=== PATIENT | female | born 1955 | race Caucasian/White ===

== ENCOUNTER 2016-09-27 09:26 | Inpatient (IN) | payer OTHER ==
[~2016-09-27] VITALS: Ht 154.9 cm; Wt 68.0 kg
[2016-09-27] VITALS (7 sets, daily range): BP systolic 122–154; BP diastolic 76–87; PULSE 70–91; TEMP 36.5–36.9; O2SAT 95–97; Ht 154.9 cm; Wt 68.0 kg
[~2016-09-27 09:26] MED LIST: PRED-301 PO
[2016-09-27] MEDS ORDERED: SODIUM CHLORIDE 0.9% 1000ML 1,000 ML IV STA (09:38)
[2016-09-27] MEDS ORDERED: SODIUM CHLORIDE 0.9% 250ML 250 ML IV STA (09:38)
--- NOTE | 2016-09-27 09:53 | EMERGENCY ROOM VISIT NOTE ---
History Report prepared by Edgar: Dee Gutierrez Under the Supervision of: Dr. Apurva Stallings M.D. First contact with patient: 09:38 Chief Complaint: STROKE SYMPTOMS Stated Complaint: WEAKNESS IN LEFT SIDE Nursing Triage Summary: pt c/o left sided weakness since yesterday around 1700. History of Present Illness The patient is a 60 year old female who presents to the Emergency Room with complaints of persistent left sided weakness that began yesterday around 1700. The patient states that yesterday afternoon she noticed left leg weakness and left arm weakness. She additionally states that her left arm feels heavy. The patient denies any dysphasia, aphasia, or visual changes. She states that she noticed she was tripping easily yesterday. The patient states that she did fall head first into the door yesterday around 1800. She denies any numbness or decreased sensation. The patient denies any active medical problems. She denies any smoking history. The patient denies taking any hormones. Source of History: patient Onset: yesterday around 1700 Position: other (left sided) Quality: other (weakness) Associated Symptoms: No numbness Review of Systems See HPI for pertinent positives & negatives. A total of 10 systems reviewed and were otherwise negative. Past Medical & Surgical Medical Problems: (1) Acute CVA (cerebrovascular accident) (2) No active medical problems (3) Stroke Family History Patient reports no known family medical history. Social History Smoking Status: Never Smoker Marital Status: Housing Status: lives with significant other Current/Historical Medications Scheduled Prednisone (Prednisone), 5 MG PO UD Allergies Coded Allergies: Atorvastatin (Verified Adverse Reaction, Intermediate, MUSCLE ACHES/PAIN, 09/27/16) Physical Exam Vital Signs Date Time Temp Pulse Resp B/P (MAP) Pulse Ox O2 Delivery O2 Flow Rate FiO2 09/27/16 10:51 72 18 142/70 95 Room Air 09/27/16 10:26 70 09/27/16 10:16 97 Room Air 09/27/16 09:36 36.8 69 18 159/90 97 Room Air Physical Exam Vital signs reviewed. General: Well-appearing female, in no significant distress. HEENT: No scleral icterus, PERRLA, neck supple. Atraumatic. Cardiovascular: Regular rate and rhythm, no extra sounds. Pulmonary: Clear to auscultation bilaterally, normal work of breathing. Abdomen: Soft, nontender, nondistended, positive bowel sounds. Musculoskeletal: Atraumatic, no peripheral edema. Neurologic: Patient awake alert and oriented x 3, subtle weakness in the left upper and lower extremity, but mild ataxia to the left finger to nose, no pronator drift, heel to portillo exam is intact. Cranial nerves 2 through 12 grossly intact. Skin: Warm, dry, no rash Medical Decision & Procedures ER Provider Diagnostic Interpretation: Radiology results as stated below per my review and radiologist interpretation: HEAD CT NONCONTRAST CT DOSE: 537.48 mGy.cm HISTORY: Stroke symptoms. TECHNIQUE: Multiaxial CT images of the head were performed without the use of intravenous contrast. Automated exposure control was utilized for this study. A dose lowering technique was utilized adhering to the principles of ALARA. Comparison: None. Findings: The paranasal sinuses and mastoid air cells are clear. The calvarium and skull base are intact. The ventricles are normal in size. White matter hypodensity is nonspecific but likely represent microvascular ischemic change. There is no mass, hematoma, midline shift, or acute infarct. Punctate old lacunar infarct seen within the right basal ganglia and right thalamus. Impression: No acute intracranial abnormality. Microvascular ischemic change and old right-sided lacunar infarcts. Electronically signed by: Shaji Ribeiro M.D. 09/27/2016 10:09 AM Dictated Date/Time: 09/27/2016 10:06 AM Laboratory Results Test 09/27/16 09:55 09/27/16 10:25 Erythrocyte Sedimentation Rate 9 mm/hr (0-21) Prothrombin Time 10.4 SECONDS (9.0-12.0) Prothromb Time International Ratio 1.0 (0.9-1.1) Activated Partial Thromboplast Time 24.3 SECONDS (21.0-31.0) Partial Thromboplastin Ratio 0.9 D-Dimer 510 ug/L FEU (0-500) Bedside Glucose 87 mg/dl (70-90) Estimated Average Glucose 111 mg/dl Hemoglobin A1c 5.5 % (4.5-5.6) Magnesium Level 2.1 mg/dl (1.8-2.4) Total Bilirubin 0.4 mg/dl (0.2-1) Direct Bilirubin < 0.1 mg/dl (0-0.2) Aspartate Amino Transf (AST/SGOT) 17 U/L (15-37) Alanine Aminotransferase (ALT/SGPT) 33 U/L (12-78) Alkaline Phosphatase 66 U/L (45-117) Total Creatine Kinase 78 U/L (26-192) Creatine Kinase MB 0.8 ng/ml (0.5-3.6) Creatine Kinase MB Ratio 1.0 (0-3.0) Troponin I < 0.015 ng/ml (0-0.045) Total Protein 7.1 gm/dl (6.4-8.2) Albumin 3.6 gm/dl (3.4-5.0) Hepatitis C Antibody Screen NEG (NEG) Urine Color YELLOW Urine Appearance CLEAR (CLEAR) Urine pH 6.5 (4.5-7.5) Urine Specific [place] 1.022 (1.000-1.030) Urine Protein NEG (NEG) Urine Glucose (UA) NEG (NEG) Urine Ketones NEG (NEG) Urine Occult Blood NEG (NEG) Urine Nitrite NEG (NEG) Urine Bilirubin NEG (NEG) Urine Urobilinogen NEG (NEG) Urine Leukocyte Esterase NEG (NEG) Laboratory results per my review. Medications Administered Medications (Trade) Dose Ordered Sig/Kelly Route Start Time Stop Time Status Last Admin Dose Admin Sodium Chloride 250 ml @ 999 mls/hr Q16M STAT IV 09/27/16 09:38 09/27/16 09:53 DC 09/27/16 10:48 999 MLS/HR Sodium Chloride 1,000 ml @ 125 mls/hr Q8H STAT IV 09/27/16 09:38 09/27/16 15:03 DC 09/27/16 10:53 125 MLS/HR ECG Indication: weakness Rate (beats per minute): 71 Rhythm: normal sinus Findings: no acute ischemic change, no ectopy ED Course 0938: Ordered Chloride 1000 ml @ 125 mls/hr IV, Sodium Chloride 250 ml @ 999 mls /hr IV. 0944: Past medical records reviewed. The patient was evaluated in room A9B. A complete history and physical examination was performed. 1138: I reevaluated the patient and she is resting comfortably. I discussed the exam findings with her and I discussed the treatment plan. She verbalized complete understanding and agreement. She will be evaluated for further treatment. 1141: I discussed the patients case with Hyacinth Galaviz. She will evaluate the patient for further treatment, but she requested that Neurology is consulted. 1145: I discussed the patients case with Dr. Snow, Neurology. She states that she will consult the patient. Medical Decision Differential diagnosis: Etiologies such as metabolic, infection, hypo/hyperglycemia, electrolyte abnormalities, cardiac sources, intracerebral event, toxicologic, neurologic, as well as others were entertained. This patient was evaluated and appeared to be in no significant distress. IV access was obtained and laboratory work was drawn. The patient was hydrated with normal saline solution. CT scan of the head was performed and reveals no acute abnl, there is evidence of old R lacunar infarcts. Patient's laboratory work is fairly unrevealing. Due to the patient's age and findings on head CT, I am concerned that she may have suffered an acute CVA that has not been identified. She will be evaluated by the hospitalist service for further management. Medication Reconcilliation Current Medication List: was personally reviewed by me Blood Pressure Screening Patient's blood pressure: Elevated blood pressure The patient was referred to the hospitalist. Consults Time Called: 1138 Consulting Physician: Hyacinth Galaviz Returned Call: 1141 I discussed the patients case with Hyacinth Galaviz. She will evaluate the patient for further treatment, but she requested that Neurology is consulted. Additional Consults: Time Called: 1143 Consulted Physician: Orlando Green Returned Call: 1149 Additional Comments: I discussed the patients case with Dr. Snow, Neurology. She states that she will consult the patient. Impression Primary Impression: CVA (cerebral vascular accident) Scribe Attestation The scribe's documentation has been prepared under my direction and personally reviewed by me in its entirety. I confirm that the note above accurately reflects all work, treatment, procedures, and medical decision making performed by me. Departure Information Dispostion Being Evaluated By Hospitalist Referrals Jhonny Jose MD (PCP) Stroke History Time Last Known Well 1700 yesterday Stroke t-PA Criteria Reviewed Does NOT meet criteria for t-PA Reason t-PA Not Given Contraindicated
--- NOTE | 2016-09-27 10:10 | DIAGNOSTIC IMAGING REPORT ---
HEAD CT NONCONTRAST CT DOSE: 537.48 mGy.cm HISTORY: Stroke symptoms. TECHNIQUE: Multiaxial CT images of the head were performed without the use of intravenous contrast. Automated exposure control was utilized for this study. A dose lowering technique was utilized adhering to the principles of ALARA. Comparison: None. Findings: The paranasal sinuses and mastoid air cells are clear. The calvarium and skull base are intact. The ventricles are normal in size. White matter hypodensity is nonspecific but likely represent microvascular ischemic change. There is no mass, hematoma, midline shift, or acute infarct. Punctate old lacunar infarct seen within the right basal ganglia and right thalamus. Impression: No acute intracranial abnormality. Microvascular ischemic change and old right-sided lacunar infarcts. Electronically signed by: Shaji Ribeiro M.D. 09/27/2016 10:09 AM Dictated Date/Time: 09/27/2016 10:06 AM
[2016-09-27 10:12] LABS: BASO % 0.2 %; BASO ABS # 0.01 K/uL (0-0.2); COMPLETE YES; EOS % 1.1 %; HEMATOCRIT 41.9 % (37-47); IG% 0.2 %; LYMPH % 14.1 %; MEAN CELL VOLUME 84.5 fL (80-100); MEAN CORPUSCULAR HEMOGLOBIN 28.6 pg (25-34); MEAN CORPUSCULAR HGB CONC 33.9 g/dl (32-36); MONO % 9.2 %; NEUT % 75.2 %; PLATELET COUNT 233 K/uL (130-400); RED BLOOD COUNT 4.96 M/uL (4.2-5.4); WHITE BLOOD COUNT 5.67 K/uL (4.8-10.8)
[2016-09-27 10:20] LABS: PARTIAL THROMBOPLASTIN RATIO 0.9; PROTHROMBIN TIME (PATIENT) 10.4 SECONDS (9.0-12.0)
[2016-09-27 11:18] LABS: ALT/SGPT 33 U/L (12-78); AST/SGOT 17 U/L (15-37); BLOOD UREA NITROGEN 14 mg/dl (7-18); BUN/CREATININE RATIO 19.9 (10-20); CALCIUM 8.7 mg/dl (8.5-10.1); CARBON DIOXIDE 28 mmol/L (21-32); CHLORIDE 102 mmol/L (98-107); CREATININE 0.71 mg/dl (0.60-1.20); GLUCOSE 89 mg/dl (70-99); MAGNESIUM 2.1 mg/dl (1.8-2.4); POTASSIUM 3.4 mmol/L (3.5-5.1); SODIUM 139 mmol/L (136-145)
[2016-09-27 11:37] LABS: ALKALINE PHOSPHATASE 66 U/L (45-117)
[2016-09-27 12:00] LABS: URINE APPEARANCE CLEAR (CLEAR); URINE BILIRUBIN NEG (NEG); URINE COLOR YELLOW; URINE NITRITE NEG (NEG); URINE PH 6.5 (4.5-7.5); URINE SPECIFIC GRAVITY 1.022 (1.000-1.030); UROBILINOGEN NEG (NEG); ZZUR CULT IF INDIC CLEAN CATCH NO
[2016-09-27] MEDS ORDERED: ZOLPIDEM TARTRATE 5 MG TAB PO PRN (12:00)
[2016-09-27] MEDS ORDERED: POLYETHYLENE (MIRALAX) 17 GM PACK PO PRN (12:00)
[2016-09-27] MEDS ORDERED: ACETAMINOPHEN 325 MG TAB PO PRN (12:00)
[2016-09-27] MEDS ORDERED: IV FLUIDS COMPLETED PRN (12:00)
[2016-09-27] MEDS ORDERED: ONDANSETRON INJ 2 MG/ML 2 ML VIAL IV PRN (12:00)
[2016-09-27] MEDS ORDERED: MAGNESIUM HYDROXIDE SUSP 30 ML UDC PO PRN (12:00)
[2016-09-27] MEDS ORDERED: PHARMACIST DISCHARGE MED REC CONSULT PRN (12:00)
[2016-09-27] MEDS ORDERED: ALUMINUM/MAGNESIUM/SIMETH (MAALOX MAX) 30 ML UDC PO PRN (12:00)
[2016-09-27 12:01] LABS: MANUAL MICROSCOPIC REQUIRED? NO; REVIEW REQ? NO
--- NOTE | 2016-09-27 12:01 | History and Physical ---
History & Physical Date & Time of Service: Sep 27, 2016 at 12:01 Chief Complaint: Weakness In Left Side Primary Care Physician: Jhonny Jose MD History of Present Illness Source: patient This is a 60 yo apparently healthy Female -hx of hyperlipidemia ( not on any meds ) , interstitial lung disease chronic , presented with symptom of heaviness of left arm since last evening at 6 pm pt denies of any headache, no visual symptoms , no facial droop , no dysarthria , no gait or balance disturbance did not had any palpitation , no SOB her symptom persisted this AM , came to ER for evaluation CT head in ED was negative for acute CVA had chronic microvascular changes MRI of brain shows acute infract on rt thalamic area Family History Patient reports no known family medical history. Social History Smoking Status: Never Smoker Marital Status: Allergies Coded Allergies: No Known Allergies (Unverified , 09/27/16) Home Medications Scheduled Prednisone (Prednisone), 5 MG PO UD Review of Systems Constitutional: No fever, No chills, No sweats, No weight loss, No weakness, No fatigue, No problem reported Eyes: No worsening of vision, No eye pain, No redness, No discharge, No diplopia, No problem reported ENT: No hearing loss, No unusual epistaxis, No nasal symptoms, No sore throat, No tinnitus, No dental problems, No trouble swallowing, No problem reported Respiratory: No cough, No sputum, No wheezing, No shortness of breath, No dyspnea on exertion, No dyspnea at rest, No hemoptysis, No problem reported Cardiovascular: No chest pain, No orthopnea, No PND, No edema, No claudication , No palpitations, No problem reported Abdomen: No pain, No nausea, No vomiting, No diarrhea, No constipation, No GI bleeding, No problem reported Neurologic: + weakness (on left arm ) Physical Exam Vital Signs Date Time Temp Pulse Resp B/P (MAP) Pulse Ox O2 Delivery O2 Flow Rate FiO2 09/27/16 10:51 72 18 142/70 95 Room Air 09/27/16 10:26 70 09/27/16 10:16 97 Room Air 09/27/16 09:36 36.8 69 18 159/90 97 Room Air General Appearance: no apparent distress Head: normocephalic, atraumatic Eyes: PERRL, EOMI, sclerae normal Neck: no JVD, no carotid bruits Respiratory/Chest: chest non-tender, lungs clear, normal breath sounds, no respiratory distress Cardiovascular: regular rate, rhythm, no edema, no JVD Abdomen/GI: normal bowel sounds, non tender, soft Neurologic/Psych: heating element builder II-XII nml as tested, alert, normal mood/affect, oriented x 3, + motor weakness (4/5 on left arm ) Skin: normal color, warm/dry, no rash Lymphatic: no adenopathy Diagnostics Laboratory Results Results Past 24 Hours Test 09/27/16 09:49 09/27/16 09:55 09/27/16 10:25 09/27/16 11:46 Range/Units Creatine Kinase MB Ratio 1.0 0-3.0 White Blood Count 5.67 4.8-10.8 K/uL Red Blood Count 4.96 4.2-5.4 M/uL Hemoglobin 14.2 12.0-16.0 g/dL Hematocrit 41.9 37-47 % Mean Corpuscular Volume 84.5 80-100 fL Mean Corpuscular Hemoglobin 28.6 25-34 pg Mean Corpuscular Hemoglobin Concent 33.9 32-36 g/dl Platelet Count 233 130-400 K/uL Mean Platelet Volume 10.0 7.4-10.4 fL Neutrophils (%) (Auto) 75.2 % Lymphocytes (%) (Auto) 14.1 % Monocytes (%) (Auto) 9.2 % Eosinophils (%) (Auto) 1.1 % Basophils (%) (Auto) 0.2 % Neutrophils # (Auto) 4.27 1.4-6.5 K/uL Lymphocytes # (Auto) 0.80 1.2-3.4 K/uL Monocytes # (Auto) 0.52 0.11-0.59 K/uL Eosinophils # (Auto) 0.06 0-0.5 K/uL Basophils # (Auto) 0.01 0-0.2 K/uL RDW Standard Deviation 39.6 36.4-46.3 fL RDW Coefficient of Variation 12.9 11.5-14.5 % Immature Granulocyte % (Auto) 0.2 % Immature Granulocyte # (Auto) 0.01 0.00-0.02 K/uL Prothrombin Time 10.4 9.0-12.0 SECONDS Prothromb Time International Ratio 1.0 0.9-1.1 Activated Partial Thromboplast Time 24.3 21.0-31.0 SECONDS Partial Thromboplastin Ratio 0.9 Sodium Level 139 136-145 mmol/L Potassium Level 3.4 3.5-5.1 mmol/L Chloride Level 102 98-107 mmol/L Carbon Dioxide Level 28 21-32 mmol/L Anion Gap 9.0 3-11 mmol/L Blood Urea Nitrogen 14 7-18 mg/dl Creatinine 0.71 0.60-1.20 mg/dl Est Creatinine Clear Calc Drug Dose 77.1 ml/min Estimated GFR () 108.8 Estimated GFR (Non- 93.9 BUN/Creatinine Ratio 19.9 10-20 Bedside Glucose 87 70-90 mg/dl Random Glucose 89 70-99 mg/dl Calcium Level 8.7 8.5-10.1 mg/dl Magnesium Level 2.1 1.8-2.4 mg/dl Total Bilirubin 0.4 0.2-1 mg/dl Direct Bilirubin < 0.1 0-0.2 mg/dl Aspartate Amino Transf (AST/SGOT) 17 15-37 U/L Alanine Aminotransferase (ALT/SGPT) 33 12-78 U/L Alkaline Phosphatase 66 45-117 U/L Total Creatine Kinase 78 26-192 U/L Creatine Kinase MB 0.8 0.5-3.6 ng/ml Troponin I < 0.015 0-0.045 ng/ml Total Protein 7.1 6.4-8.2 gm/dl Albumin 3.6 3.4-5.0 gm/dl Diagnostic Radiology CT HEAD WITHOUT CONTRAST : Impression: No acute intracranial abnormality. Microvascular ischemic change and old right-sided lacunar infarcts. MRI BRAIN IMPRESSION: 1. An acute lacunar infarct within the right thalamus which measures 9 mm. 2. Greater than expected white matter T2 hyperintensity for age. This could represent advanced microvascular ischemic change. However, multiple sclerosis, Lyme disease, or a vasculitis could also have a similar appearance. MRA OF BRAIN : IMPRESSION: Mild narrowing within the supraclinoid segment of the right internal carotid carotid artery. Otherwise, no significant stenosis, occlusion, or aneurysm within the [place]. CAROTID DOPPLER : IMPRESSION: No hemodynamically significant stenosis seen within the carotid arteries. BILATERAL LOWER EXT DOPPLER : IMPRESSION: No evidence of deep venous thrombus within the bilateral lower extremities. EKG Normal sinus rhythm Normal ECG No previous ECGs available Impression Assessment and Plan ACUTE CVA : presented with left sided weakness since last evening symptom has markedly improved no dysarthria , no facial droop, MRI of brain shows acute rt sided thalamic CVA old lacunar infarction pt started on dual antiplatelets Aspirin and Plavix Carotid Doppler negative for stenosis started on high intensity statin therapy check fasting lipid panel in AM appreciate eval form neurology pt will be observed in tele for evidence of arrhythmia ECHO ordered to assess for cardiac thrombus mild elevation of D dimer lower ext Doppler negative for DVT PT/.OT eval in AM HX OF HYPERLIPIDEMIA : was not on any meds started on high intensity statin therapy check fasting lipid panel in AM CHRONIC INTERSTITIAL LUNG DISEASE : no complain of SOB /GALEAS , no hypoxia respiratory status stable FULL CODE DVT PROPHYLAXIS : low risk active at baseline SCD and teds pt is encouraged to ambulate DISPOSITION : expected to be discharged home when medically stable Level of Care Telemetry Resuscitation Status FULL RESUSCITATION VTE Prophylaxis VTE Risk Assessment Done? Y/N: Yes Risk Level: Moderate Given or contraindicated: T.E.D. Stockings, SCD's
[2016-09-27] MEDS ORDERED: ASPIRIN 325 MG ECTAB PO ONE (12:30)
[2016-09-27] MEDS ORDERED: CLOPIDOGREL BISULFATE 75 MG TAB PO ONE ×2 (12:45→15:30)
--- NOTE | 2016-09-27 13:19 | DIAGNOSTIC IMAGING REPORT ---
Brain MRA HISTORY: Stroke - Attention to [place] TECHNIQUE: 3-D [id number] MRA of the brain was performed without contrast. COMPARISON STUDY: Head CT 09/27/2016. FINDINGS: Focal irregularity within the right carotid siphon due to the calcified plaque. There is mild narrowing of the supraclinoid segment of the right internal carotid artery. Visualized intracranial left internal carotid artery, distal vertebral arteries, and basilar artery are widely patent. There is no significant stenosis, occlusion, or aneurysm seen within the bilateral ACAs, MCAs, or quick sketch artist. IMPRESSION: Mild narrowing within the supraclinoid segment of the right internal carotid carotid artery. Otherwise, no significant stenosis, occlusion, or aneurysm within the [place]. Electronically signed by: Shaji Ribeiro M.D. 09/27/2016 1:18 PM Dictated Date/Time: 09/27/2016 1:11 PM
--- NOTE | 2016-09-27 14:08 | NEUROLOGY CONSULTATION ---
DATE OF CONSULTATION: 09/27/2016 REASON FOR CONSULTATION: Possible stroke. HISTORY OF PRESENT ILLNESS: The patient is a 60-year-old right-handed female with a history of interstitial lung disease. She presented to the Emergency Room today with persistent left-sided weakness that began yesterday at approximately 4:00 p.m. The patient was driving home with a passenger going home in a car, and she noted her left arm to be weak as well as her left leg to be weak. She felt perhaps if she slept it would resolve, but it did not and therefore she came into the hospital today. Her neurologic symptoms have been unchanged. There has been no change in vision, speech, language. No facial droop. No sensory symptoms. No vertigo. No headache. No chest pain, palpitations or shortness of breath. She has not otherwise been ill. She is on a tapering dose of prednisone. Currently, taking 10 mg a day for persistent cough associated with interstitial lung disease. She has not had any recent head or neck injuries, medical or dental procedures. She has no prior history of transient ischemic attacks. She has known hyperlipidemia for which she is not on medicine. She does not have hypertension and diabetes. No history of DVT, cancer. PAST MEDICAL HISTORY: As above, hyperlipidemic, interstitial lung disease. PAST SURGICAL HISTORY: None. SOCIAL HISTORY: Nonsmoker, nondrinker. She is a homemaker. FAMILY HISTORY: Mother had a bypass surgery at 72 and after a knee replacement. Father had of CLL; siblings, children are well. There is no family history of early stroke. No family history of DVT. DATA: CT of the head noncontrast shows some small vessel infarctions in the right hemisphere that appear old. Electrocardiogram - sinus rhythm, normal EKG. LABORATORY DATA: White count 5.7, H and H 14/41, platelets 233. PT 10.4, PTT 24.3. Chemistry profile: Sodium 139, potassium 3.4, BUN and creatinine 14/0.7. CK, CK-MB normal. Calcium 8.6. Urinalysis negative. Immunology pending. PHYSICAL EXAMINATION: VITAL SIGNS: On admission, 159/90, 36.8, 69, 18, 97%. GENERAL: The patient is awake and alert. There is normal speech and language. Her affect is appropriate. There is no right/left confusion. There is no aphasia. She is oriented x3. NECK: No carotid bruits. HEART: No heart murmurs. Heart has regular rate and rhythm. LUNGS: Clear. ABDOMEN: Soft, nontender. EXTREMITIES: Peripheral pulses are intact. There is no calf swelling or tenderness. NEUROLOGIC: Pupils are equal, round, reactive to light. The optic nerves are unremarkable. There are normal visual salas. No visual extinction. There is mild flattening of the left nasal labial fold. There is normal speech and language. Tongue is midline. Motor: There is normal bulk and tone naris fairly symmetric strength. There is a minimal left drift. There are normal rapid alternating movements. Left lower extremity I believe to be full. Sensation is intact to light touch, temperature and vibration. Reflexes are symmetric. Toes are downgoing. [id number] is mildly clumsy on the left. [id number] is normal. IMPRESSION: Presumed lacunar infarction. PLAN: Aspirin and Plavix, permissive tension, workup including MRI of the brain, carotid ultrasound, echocardiography with bubble study, likely treatment for hyperlipidemia with a goal LDL less than 70, telemetric monitoring to rule out atrial dysrhythmia. Will follow with you. YENNY
--- NOTE | 2016-09-27 14:13 | DIAGNOSTIC IMAGING REPORT ---
Brain MRI WITH AND WITHOUT CONTRAST HISTORY: Left-sided weakness. TECHNIQUE: Multiplanar multisequence MRI of the brain was performed both before and after the intravenous administration of contrast. COMPARISON STUDY: Head CT 09/27/2016. FINDINGS: There is an old lacunar infarct within the right thalamus. Adjacent to the old infarct within the right thalamus there is a 9 mm focus of restricted diffusion. This is consistent with an acute lacunar infarct. The midline structures are intact. Multiple scattered foci of T2 hyperintensity seen within the periventricular and subcortical white matter of the supratentorial brain. The ventricles are normal in size. There is no mass, hematoma, or midline shift. The paranasal sinuses and mastoid air cells are clear. The no abnormal enhancement. IMPRESSION: 1. An acute lacunar infarct within the right thalamus which measures 9 mm. 2. Greater than expected white matter T2 hyperintensity for age. This could represent advanced microvascular ischemic change. However, multiple sclerosis, Lyme disease, or a vasculitis could also have a similar appearance. Electronically signed by: Shaji Ribeiro M.D. 09/27/2016 2:11 PM Dictated Date/Time: 09/27/2016 2:06 PM
--- NOTE | 2016-09-27 14:44 | DIAGNOSTIC IMAGING REPORT ---
BILATERAL CAROTID DOPPLER STUDY HISTORY: Stroke symptoms. Left-sided weakness. COMPARISON: None. TECHNIQUE: Real-time, grayscale, and color Doppler sonography of the carotid arteries was performed. Imaging reviewed in the transverse and longitudinal planes. All measurements were calculated based on NASCET criteria. FINDINGS: Antegrade flow is seen in the bilateral vertebral arteries. Mild calcified plaque within the bilateral carotid bulbs. The peak systolic velocity within the right ICA is 92 cm/s. The right systolic ratio is 1.1. The peak systolic velocity within the left ICA is 98 cm/s. The left systolic ratio is 1.3. IMPRESSION: No hemodynamically significant stenosis seen within the carotid arteries. Electronically signed by: Shaji Ribeiro M.D. 09/27/2016 2:43 PM Dictated Date/Time: 09/27/2016 2:42 PM
--- NOTE | 2016-09-27 16:15 | DIAGNOSTIC IMAGING REPORT ---
BILATERAL LOWER EXTREMITY VENOUS DOPPLER CLINICAL HISTORY: Elevated d-dimer. COMPARISON STUDY: No previous studies for comparison. TECHNIQUE: Sonography of the deep venous system of the bilateral lower extremities was performed. Compression and augmentation were evaluated. FINDINGS: The bilateral common femoral, superficial femoral and popliteal veins were compressible. Augmentation was normal. Flow was shown within the deep calf vessels. IMPRESSION: No evidence of deep venous thrombus within the bilateral lower extremities. Electronically signed by: Bj Lopez M.D. 09/27/2016 4:13 PM Dictated Date/Time: 09/27/2016 4:13 PM
[2016-09-27] MEDS ORDERED: ASPIRIN 81 MG ECTAB PO STA (18:01)
[2016-09-27] MEDS ORDERED: ATORVASTATIN 40 MG TAB PO SCH (21:00)
[2016-09-28] VITALS (7 sets, daily range): BP systolic 121–149; BP diastolic 73–104; PULSE 59–71; TEMP 36.8–36.9; O2SAT 97–98
[2016-09-28 06:02] LABS: BASO % 0.4 %; BASO ABS # 0.02 K/uL (0-0.2); COMPLETE YES; EOS % 1.5 %; HEMATOCRIT 40.7 % (37-47); LYMPH % 20.3 %; LYMPH ABS # 0.92 K/uL (1.2-3.4); MEAN CELL VOLUME 84.1 fL (80-100); MEAN CORPUSCULAR HEMOGLOBIN 28.5 pg (25-34); MEAN CORPUSCULAR HGB CONC 33.9 g/dl (32-36); MEAN PLATELET VOLUME 9.6 fL (7.4-10.4); MONO % 9.7 %; NEUT % 68.1 %; PLATELET COUNT 215 K/uL (130-400); RED BLOOD COUNT 4.84 M/uL (4.2-5.4); WHITE BLOOD COUNT 4.54 K/uL (4.8-10.8)
[2016-09-28 06:32] LABS: CALCIUM 8.6 mg/dl (8.5-10.1); CREATININE 0.63 mg/dl (0.60-1.20); POTASSIUM 3.8 mmol/L (3.5-5.1)
[2016-09-28 06:35] LABS: CHOLESTEROL/HDL RATIO 4.3
[2016-09-28 06:49] LABS: ESTIMATED AVERAGE GLUCOSE 111 mg/dl; HA1C FLAG Normal (Normal)
[2016-09-28] MEDS ORDERED: ASPIRIN 81 MG ECTAB PO SCH (09:00)
[2016-09-28] MEDS ORDERED: CLOPIDOGREL BISULFATE 75 MG TAB PO SCH (09:00)
[2016-09-28] MEDS ORDERED: PLV75 PO (12:58)
[2016-09-28] MEDS ORDERED: ASPEC81 PO (12:58)
--- NOTE | 2016-09-28 13:01 | Discharge Instructions ---
Discharge Instructions Date of Service Sep 28, 2016. Admission Reason for Admission: Acute Cva (Cerebrovascular Accident) Discharge Discharge Diagnosis / Problem: ACUTE STROKE Discharge Goals Goal(s): Decrease discomfort, Improve disease control, Diagnostic testing, Therapeutic intervention Activity Recommendations Activity Limitations: resume your previous activity Exercise/Sports Limitations: none Shower/Bathe: no limitations Driving or Machine Use: AFTER FOLLOW UP . Instructions / Follow-Up Instructions / Follow-Up NEED FASTING LIPID PANEL CHECKED IN 3-6 MONTHS , GOAL LDL < 70 PLEASE DISCUSS WITH FAMILY PHYSICIAN REGARDING STARTING ON STAIN LOW DOSE TO ASSESS TOLERANCE Risk Factors for Stroke: You can reduce your chances of stroke by working with your medical provider to adopt a healthy lifestyle. Some specific ways to lower your chance of stroke are: * If you are a smoker, now is the time to stop smoking cigarettes * If you are diabetic, improve the control of your blood sugars * Avoid excessive amounts of alcohol * Control high blood pressure * Lose weight if you are overweight * Be sure to lead an active lifestyle * Eat a healthy diet low in salt, cholesterol and fat You should know about other risk factors for stroke that you are unable to control. These include: * Age 55 years or older * Male gender * Certain racial groups: , or / * Family History of Stroke, Mini stroke or Heart Attack * Sickle Cell Disease Follow Up: It is important for you to keep your follow up appointments with your medical provider. HOSPITAL FOLLOW UP : 10/01/2016 10:30 AM Jhonny Jose MD [facility] NEUROLOGY FOLLOW UP WITH DR FAULKNER IN 2-3 WEEKS, PLEASE CALL OFFICE FOR APPOINTMENT Current Hospital Diet Patient's current hospital diet: AHA Diet (Heart Healthy) Discharge Diet Recommended Diet: AHA Diet (Heart Healthy) Pending Studies Studies pending at discharge: no Laboratory Results Hemoglobin A1c Test 09/27/16 09:55 Range/Units Estimated Average Glucose 111 mg/dl Hemoglobin A1c 5.5 4.5-5.6 % Lipid Panel Test 09/28/16 05:42 Range/Units Triglycerides Level 56 0-150 mg/dl Cholesterol Level 387 H 0-200 mg/dl HDL Cholesterol 90 mg/dl Cholesterol/HDL Ratio 4.3 LDL Cholesterol, Calculated 286 mg/dl Medical Emergencies . Who to Call and When: Medical Emergencies: Call 911 immediately if you experience any of the following warning signs and symptoms of Stroke: * Sudden numbness or weakness of the face, arm or leg, especially on one side of the body * Sudden confusion, trouble speaking or understanding * Sudden trouble seeing in one or both eyes * Sudden trouble walking, dizziness, loss of balance or coordination * Sudden severe headache with no cause Do not delay calling 911 if you experience any warning signs or symptoms of a stroke. Delay in seeking medical attention may affect what treatments can be given to you. . Non-Emergent Contact Non-Emergency issues call your: Primary Care Provider . . "Provider Documentation" section prepared by Sanjuana Abad. . Stroke Core Measures Reason no t-PA for Stroke: Treatment not indicated Reason no antithrom by day 2: Treatment provided - N/A Reason no antithrom at D/C: Treatment provided - N/A Reason no statin at D/C: Drug intolerance Reason no anticoag w/a fib: Treatment not indicated VTE Core Measure Inpt VTE Proph given/why not?: T.E.D. Stockings, SCD's
--- NOTE | 2016-09-28 15:42 | DIAGNOSTIC IMAGING REPORT ---
CERVICAL WITHOUT CONTRAST CLINICAL HISTORY: 60 years-old Female presenting with extensive white matter chg brain r/o cord plaque, left-sided weakness. TECHNIQUE: Multisequence, multiplanar MR imaging of the cervical spine was performed without the use of intravenous contrast. IV contrast: None. COMPARISON: None. FINDINGS: Normal cervical lordosis. Vertebral bodies maintain normal height, alignment, and bone marrow signal intensity. Mild intervertebral disc desiccation with associated minimal height loss at C4-5 and C5-6. From C4-5 to C6-7, small disc osteophyte complexes are noted, which in combination with uncovertebral hypertrophy result in moderate left neural foraminal narrowing at C4-5 and mild right and moderate left neural foraminal narrowing at C5-6. No significant neural foraminal narrowing at C6-7. No significant spinal canal narrowing. Spinal cord maintains normal morphology and signal intensity. No focal lesion within the spinal cord. The absence of intravenous contrast somewhat limits evaluation. Craniocervical junction normal. Paraspinal soft tissues normal. IMPRESSION: 1. No convincing evidence of abnormal signal intensity within the spinal cord to suggest demyelinating disease. 2. Multilevel degenerative changes with varying degrees of neural foraminal narrowing at C4-5 and C5-6 as above. Electronically signed by: William Rodriguez M.D. 09/28/2016 3:41 PM Dictated Date/Time: 09/28/2016 3:35 PM
--- NOTE | 2016-09-28 17:31 | ECHOCARDIOGRAM REPORT ---
*NOTICE TO RECEIVING DEMOCRAT AGENCY This information is strictly Confidential and protected under [place] law. [place] law prohibits you from making any further disclosure of this information unless further disclosure is expressly permitted by the written consent of the person to whom it pertains or is authorized by law. A general authorization for the release of medical or other information is not sufficient for this purpose. Hospital accepts no responsibility if the information is made available to any other person, INCLUDING THE PATIENT. Interpretation Summary * Name: ANDRE BANKS Study Date: 09/28/2016 07:28 AM BP: 121/73 mmHg * Patient Location: .2T\S\S239\S\1 HR: 59 * : 1955 (M/d/yyyy) Gender: Female Height: 61 in * Age: 60 yrs Ethnicity: CA Weight: 153 lb * Ordering Physician: Sanjuana Abad * Referring Physician: Self, Referred * Performed By: Dee Petersen RDCS * * Reason For Study: CARDIOMEGALY * BSA: 1.7 m2 * -- Conclusions -- * Aortic valve sclerosis mild, without significant aortic valvular stenosis. * The left ventricular wall motion is normal. * There is mild concentric left ventricular hypertrophy. * The LV Ejection Fraction = 60-65%. * The right ventricle is normal in size and function. * Grade I diastolic dysfunction, (abnormal relaxation pattern). * The interatrial septum is intact with no evidence for an atrial septal defect. * Injection of contrast documented no interatrial shunt. Procedure Details * A saline contrast injection was performed to assess for cardiac shunting. * The injection was performed through an intravenous line in the right arm. * The attending nurse who injected the saline contrast was SRAVANI SHELL RN. * A total of 20 cc of agitated saline was given. * A complete two-dimensional transthoracic echocardiogram was performed (2D, M-mode, Doppler and color flow Doppler). Left Ventricle * The left ventricle is normal in size. * There is mild concentric left ventricular hypertrophy. * Ejection Fraction = 60-65%. * Left ventricular systolic function is normal. * The left ventricular wall motion is normal. Right Ventricle * The right ventricle is normal in size and function. * The right ventricular systolic function is normal as assessed by tricuspid annular plane systolic excursion (TAPSE) (normal >1.5 cm). Atria * The left atrial size is normal. * Right atrial size is normal. * The interatrial septum is intact with no evidence for an atrial septal defect. * Injection of contrast documented no interatrial shunt. Mitral Valve * The mitral valve is normal. * There is no mitral valve stenosis. * Significant mitral regurgitation is absent. Tricuspid Valve * The tricuspid valve is normal. * There is no tricuspid stenosis. * Significant tricuspid regurgitation is absent. Aortic Valve * The aortic valve is trileaflet. * Aortic valve sclerosis mild, without significant aortic valvular stenosis. * Aortic stenosis is absent. * There is no significant aortic regurgitation. Pulmonic Valve * The pulmonary valve is not well seen, but the Doppler examination is normal without significant regurgitation or stenosis. Great Vessels * There is aortic root sclerosis/calcification. * The aortic root and proximal ascending aorta are normal sized. Pericardium/Pleural * There is no pericardial effusion. Great Vessels * Normal inferior vena cava diameter and respiratory variation suggests normal central venous pressure. Left Ventricular Diastolic Function * Grade I diastolic dysfunction, (abnormal relaxation pattern). MMode 2D Measurements and Calculations IVSd 1.2 cm IVSs 1.5 cm LVIDd 3.7 cm LVIDs 2.5 cm LVPWd 1.3 cm LVPWs 1.8 cm IVS/LVPW 0.89 FS 32.5 % EDV(Teich) 59.3 ml ESV(Teich) 22.8 ml EF(Teich) 61.6 % EDV(cubed) 51.9 ml ESV(cubed) 16.0 ml EF(cubed) 69.2 % % IVS thick 29.2 % % LVPW thick 36.1 % LV mass(C)d 160.1 grams LV mass(C)dI 95.0 grams/m\S\2 LV mass(C)s 154.8 grams LV mass(C)sI 91.8 grams/m\S\2 SV(Teich) 36.5 ml SI(Teich) 21.7 ml/m\S\2 SV(cubed) 35.9 ml SI(cubed) 21.3 ml/m\S\2 Ao root diam 2.8 cm Ao root area 6.2 cm\S\2 LA dimension 3.4 cm LA/Ao 1.2 LVAd ap4 24.5 cm\S\2 LVLd ap4 7.3 cm EDV(MOD-sp4) 69.5 ml EDV(sp4-el) 70.3 ml LVAs ap4 13.0 cm\S\2 LVLs ap4 5.9 cm ESV(MOD-sp4) 26.1 ml ESV(sp4-el) 24.4 ml EF(MOD-sp4) 62.5 % EF(sp4-el) 65.3 % LVAd ap2 23.9 cm\S\2 LVLd ap2 7.4 cm EDV(MOD-sp2) 66.1 ml EDV(sp2-el) 65.6 ml LVAs ap2 13.7 cm\S\2 LVLs ap2 6.1 cm ESV(MOD-sp2) 27.9 ml ESV(sp2-el) 26.1 ml EF(MOD-sp2) 57.9 % EF(sp2-el) 60.2 % LVLd %diff 1.2 % EDV(MOD-bp) 68.0 ml LVLs %diff 3.1 % ESV(MOD-bp) 27.2 ml EF(MOD-bp) 60.0 % SV(MOD-sp4) 43.4 ml SI(MOD-sp4) 25.8 ml/m\S\2 SV(MOD-sp2) 38.2 ml SI(MOD-sp2) 22.7 ml/m\S\2 SV(MOD-bp) 40.8 ml SI(MOD-bp) 24.2 ml/m\S\2 SV(sp4-el) 45.9 ml SI(sp4-el) 27.2 ml/m\S\2 SV(sp2-el) 39.5 ml SI(sp2-el) 23.4 ml/m\S\2 Doppler Measurements and Calculations MV E max jillian 61.3 cm/sec MV A max jillian 62.9 cm/sec MV E/A 0.98 MV dec time 0.26 sec Ao V2 max 146.3 cm/sec Ao max PG 8.6 mmHg Ao max PG (full) 2.9 mmHg LV V1 max PG 5.7 mmHg LV V1 max 119.1 cm/sec
[2016-09-28] MEDS ORDERED: ATOR80TA PO (18:14)
--- NOTE | 2016-09-28 18:23 | Progress Note ---
Internal Med Progress Note Date of Service: Sep 28, 2016. Provider Documentation: SUBJECTIVE: no weakness on left hand and arm no headache feels fine evaluated by Neurology today stable to be discharged home today OBJECTIVE: Vital Signs-as noted below Exam: General-no sign of distress Eyes-sclera ,PERRLA/EOMI ENT-NAD Neck-no JVD Lungs-CTA Heart-regular S1/S2 Abdomen-soft, non tender Extremities-no lower ext edema Neuro-AAO x3, no focal deficit Lab data as noted below. ASSESSMENT & PLAN: ACUTE CVA : presented with left sided weakness since last evening symptom has markedly improved no dysarthria , no facial droop, MRI of brain shows acute rt sided thalamic CVA old lacunar infarction pt started on dual antiplatelets Aspirin and Plavix Carotid Doppler negative for stenosis started on high intensity statin therapy fasting lipid panel in shows : LDL elevated 286 ordered for Lipitor 80 mg PO HS pt reports of having muscle aches and pain while on statin years back pt is counselled given acute CVA and radiographic evidence of prior stroke , and elevated LDL it is very important to start on statin to prevent CVA /CAD pt is asked to take Lipitor 80 mg every other day have evaluation with family physician in 3-6 weeks for fasting lipid panel ECHO shows no evidence of cardiac thrombus mild elevation of D dimer lower ext Doppler negative for DVT HX OF HYPERLIPIDEMIA : was not on any meds started on high intensity statin therapy due to hx of intolerance asked to take Lipitor 80 mg PO HS every other day CHRONIC INTERSTITIAL LUNG DISEASE : no complain of SOB /GALEAS , no hypoxia respiratory status stable FULL CODE DVT PROPHYLAXIS : low risk active at baseline SCD and teds pt is encouraged to ambulate DISPOSITION : stable to be discharged home today Vital Signs: Date Time Temp Pulse Resp B/P (MAP) Pulse Ox O2 Delivery O2 Flow Rate FiO2 09/28/16 16:15 Room Air 09/28/16 15:53 36.8 70 20 132/83 (99) 97 Room Air 09/28/16 12:00 Room Air 09/28/16 11:28 36.9 67 18 143/90 (107) 97 Room Air 09/28/16 10:40 71 97 09/28/16 08:00 97 Room Air 09/28/16 07:41 36.9 59 19 121/73 (89) 97 Room Air 09/28/16 04:15 36.8 66 16 138/76 (96) 98 Room Air 09/28/16 04:00 Room Air 09/28/16 00:05 Room Air 09/27/16 23:44 36.7 70 16 122/76 (91) 97 Room Air 09/27/16 20:00 Room Air 09/27/16 19:05 36.8 91 20 154/87 (109) 96 Room Air Lab Results: Results Past 24 Hours Test 09/28/16 05:42 Range/Units White Blood Count 4.54 4.8-10.8 K/uL Red Blood Count 4.84 4.2-5.4 M/uL Hemoglobin 13.8 12.0-16.0 g/dL Hematocrit 40.7 37-47 % Mean Corpuscular Volume 84.1 80-100 fL Mean Corpuscular Hemoglobin 28.5 25-34 pg Mean Corpuscular Hemoglobin Concent 33.9 32-36 g/dl Platelet Count 215 130-400 K/uL Mean Platelet Volume 9.6 7.4-10.4 fL Neutrophils (%) (Auto) 68.1 % Lymphocytes (%) (Auto) 20.3 % Monocytes (%) (Auto) 9.7 % Eosinophils (%) (Auto) 1.5 % Basophils (%) (Auto) 0.4 % Neutrophils # (Auto) 3.09 1.4-6.5 K/uL Lymphocytes # (Auto) 0.92 1.2-3.4 K/uL Monocytes # (Auto) 0.44 0.11-0.59 K/uL Eosinophils # (Auto) 0.07 0-0.5 K/uL Basophils # (Auto) 0.02 0-0.2 K/uL RDW Standard Deviation 39.4 36.4-46.3 fL RDW Coefficient of Variation 13.0 11.5-14.5 % Immature Granulocyte % (Auto) 0.0 % Immature Granulocyte # (Auto) 0.00 0.00-0.02 K/uL Sodium Level 139 136-145 mmol/L Potassium Level 3.8 3.5-5.1 mmol/L Chloride Level 107 98-107 mmol/L Carbon Dioxide Level 26 21-32 mmol/L Anion Gap 6.0 3-11 mmol/L Blood Urea Nitrogen 13 7-18 mg/dl Creatinine 0.63 0.60-1.20 mg/dl Est Creatinine Clear Calc Drug Dose 85.8 ml/min Estimated GFR () 114.6 Estimated GFR (Non- 98.9 BUN/Creatinine Ratio 21.0 10-20 Random Glucose 86 70-99 mg/dl Calcium Level 8.6 8.5-10.1 mg/dl Triglycerides Level 56 0-150 mg/dl Cholesterol Level 387 0-200 mg/dl HDL Cholesterol 90 mg/dl LDL Cholesterol, Calculated 286 mg/dl VLDL Cholesterol, Calculated 11 mg/dl Cholesterol/HDL Ratio 4.3
--- NOTE | 2016-09-28 18:24 | Discharge Summary ---
Discharge Summary Date of Service Sep 28, 2016. Discharge Summary Admission Date: Sep 27, 2016 at 15:00 Discharge Date: Sep 28, 2016 Discharge Disposition: Home Principal Diagnosis: ACUTE STROKE/HYPERLIPIDEMIA Procedures: CT HEAD WITHOUT CONTRAST : Impression: No acute intracranial abnormality. Microvascular ischemic change and old right-sided lacunar infarcts. MRI BRAIN IMPRESSION: 1. An acute lacunar infarct within the right thalamus which measures 9 mm. 2. Greater than expected white matter T2 hyperintensity for age. This could represent advanced microvascular ischemic change. However, multiple sclerosis, Lyme disease, or a vasculitis could also have a similar appearance. MRA OF BRAIN : IMPRESSION: Mild narrowing within the supraclinoid segment of the right internal carotid carotid artery. Otherwise, no significant stenosis, occlusion, or aneurysm within the elem of Ruiz. ECHO : * Aortic valve sclerosis mild, without significant aortic valvular stenosis. * The left ventricular wall motion is normal. * There is mild concentric left ventricular hypertrophy. * The LV Ejection Fraction = 60-65%. * The right ventricle is normal in size and function. * Grade I diastolic dysfunction, (abnormal relaxation pattern). * The interatrial septum is intact with no evidence for an atrial septal defect. * Injection of contrast documented no interatrial shunt. CAROTID DOPPLER : IMPRESSION: No hemodynamically significant stenosis seen within the carotid arteries. BILATERAL LOWER EXT DOPPLER : IMPRESSION: No evidence of deep venous thrombus within the bilateral lower extremities. MRI OF CERVICAL SPINE IMPRESSION: 1. No convincing evidence of abnormal signal intensity within the spinal cord to suggest demyelinating disease. 2. Multilevel degenerative changes with varying degrees of neural foraminal narrowing at C4-5 and C5-6 as above. EKG Normal sinus rhythm Normal ECG No previous ECGs available Consultations: [facility] Medication Reconciliation New Medications: Atorvastatin Calcium (Lipitor) 80 Mg Tab 80 MG PO UD for 30 Days, #15 TAB 2 Refills every other day Aspirin (Aspirin EC Low Dose) 81 Mg Ectab 81 MG PO QAM, #30 TABS 2 Refills TAKE WITH FULL STOMACH Clopidogrel Bisulfate (Clopidogrel) 75 Mg Tab 75 MG PO QAM, #30 TAB 2 Refills TAKE WITH FULL STOMACH Discontinued Medications: Prednisone (Prednisone) 5 Mg Tab 5 MG PO UD, TAB TAKE 4 TABS FOR 10 DAYS, TAKE 3 TABS FOR 10 DAYS, TAKE 2 TABS FOR 10 DAYS, THEN TAKE 1 TAB FOR 10 DAYS Referrals At Discharge Follow up Referrals: Neurologist Referral - Within 2 Weeks with Shruthi Aquino M.D. Admission Information HPI (per Admitting provider): This is a 60 yo apparently healthy Female -hx of hyperlipidemia ( not on any meds ) , interstitial lung disease chronic , presented with symptom of heaviness of left arm since last evening at 6 pm pt denies of any headache, no visual symptoms , no facial droop , no dysarthria , no gait or balance disturbance did not had any palpitation , no SOB her symptom persisted this AM , came to ER for evaluation CT head in ED was negative for acute CVA had chronic microvascular changes MRI of brain shows acute infract on rt thalamic area Physical Exam (per Admitting): General Appearance: no apparent distress Head: normocephalic, atraumatic Eyes: PERRL, EOMI, sclerae normal Neck: no JVD, no carotid bruits Respiratory/Chest: chest non-tender, lungs clear, normal breath sounds, no respiratory distress Cardiovascular: regular rate, rhythm, no edema, no JVD Abdomen/GI: normal bowel sounds, non tender, soft Neurologic/Psych: 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, alert, normal mood/affect, oriented x 3, + motor weakness (4/5 on left arm ) Skin: normal color, warm/dry, no rash Lymphatic: no adenopathy Hospital Course ACUTE CVA : presented with left sided weakness since last evening symptom has markedly improved no dysarthria , no facial droop, MRI of brain shows acute rt sided thalamic CVA old lacunar infarction pt started on dual antiplatelets Aspirin and Plavix Carotid Doppler negative for stenosis started on high intensity statin therapy fasting lipid panel in shows : LDL elevated 286 ordered for Lipitor 80 mg PO HS pt reports of having muscle aches and pain while on statin years back pt is counselled given acute CVA and radiographic evidence of prior stroke , and elevated LDL it is very important to start on statin to prevent CVA /CAD pt is asked to take Lipitor 80 mg every other day have evaluation with family physician in 3-6 weeks for fasting lipid panel ECHO shows no evidence of cardiac thrombus mild elevation of D dimer lower ext Doppler negative for DVT HX OF HYPERLIPIDEMIA : was not on any meds started on high intensity statin therapy due to hx of intolerance asked to take Lipitor 80 mg PO HS every other day CHRONIC INTERSTITIAL LUNG DISEASE : no complain of SOB /GALEAS , no hypoxia respiratory status stable FULL CODE DVT PROPHYLAXIS : low risk active at baseline SCD and teds pt is encouraged to ambulate DISPOSITION : stable to be discharged home today Total time spent on discharge = 40 mins This includes examination of the patient, discharge planning, medication reconciliation, and communication with other providers. Discharge Instructions Discharge Instructions Date of Service Sep 28, 2016. Admission Reason for Admission: Acute Cva (Cerebrovascular Accident) Discharge Discharge Diagnosis / Problem: ACUTE STROKE/HYPERLIPIDEMIA Discharge Goals Goal(s): Decrease discomfort, Improve disease control, Diagnostic testing, Therapeutic intervention Activity Recommendations Activity Limitations: resume your previous activity Exercise/Sports Limitations: none Shower/Bathe: no limitations Driving or Machine Use: AFTER FOLLOW UP . Instructions / Follow-Up Instructions / Follow-Up NEED FASTING LIPID PANEL CHECKED IN 3-6 MONTHS , GOAL LDL < 70 PLEASE DISCUSS WITH FAMILY PHYSICIAN REGARDING STARTING ON STAIN LOW DOSE TO ASSESS TOLERANCE Risk Factors for Stroke: You can reduce your chances of stroke by working with your medical provider to adopt a healthy lifestyle. Some specific ways to lower your chance of stroke are: * If you are a smoker, now is the time to stop smoking cigarettes * If you are diabetic, improve the control of your blood sugars * Avoid excessive amounts of alcohol * Control high blood pressure * Lose weight if you are overweight * Be sure to lead an active lifestyle * Eat a healthy diet low in salt, cholesterol and fat You should know about other risk factors for stroke that you are unable to control. These include: * Age 55 years or older * Male gender * Certain racial groups: , or / * Family History of Stroke, Mini stroke or Heart Attack * Sickle Cell Disease Follow Up: It is important for you to keep your follow up appointments with your medical provider. HOSPITAL FOLLOW UP : 10/01/2016 10:30 AM Jhonny Jose MD [facility] NEUROLOGY FOLLOW UP WITH DR FAULKNER IN 2-3 WEEKS, PLEASE CALL OFFICE FOR APPOINTMENT Current Hospital Diet Patient's current hospital diet: AHA Diet (Heart Healthy) Discharge Diet Recommended Diet: AHA Diet (Heart Healthy) Pending Studies Studies pending at discharge: no Laboratory Results Hemoglobin A1c Test 09/27/16 09:55 Range/Units Estimated Average Glucose 111 mg/dl Hemoglobin A1c 5.5 4.5-5.6 % Lipid Panel Test 09/28/16 05:42 Range/Units Triglycerides Level 56 0-150 mg/dl Cholesterol Level 387 H 0-200 mg/dl HDL Cholesterol 90 mg/dl Cholesterol/HDL Ratio 4.3 LDL Cholesterol, Calculated 286 mg/dl Medical Emergencies . Who to Call and When: Medical Emergencies: Call 911 immediately if you experience any of the following warning signs and symptoms of Stroke: * Sudden numbness or weakness of the face, arm or leg, especially on one side of the body * Sudden confusion, trouble speaking or understanding * Sudden trouble seeing in one or both eyes * Sudden trouble walking, dizziness, loss of balance or coordination * Sudden severe headache with no cause Do not delay calling 911 if you experience any warning signs or symptoms of a stroke. Delay in seeking medical attention may affect what treatments can be given to you. . Non-Emergent Contact Non-Emergency issues call your: Primary Care Provider . . "Provider Documentation" section prepared by Sanjuana Abad. . Stroke Core Measures Reason no t-PA for Stroke: Treatment not indicated Reason no antithrom by day 2: Treatment provided - N/A Reason no antithrom at D/C: Treatment provided - N/A Reason no statin at D/C: Drug intolerance Reason no anticoag w/a fib: Treatment not indicated VTE Core Measure Inpt VTE Proph given/why not?: Melissa Oliver, SCD's Additional Copies To Shruthi Aquino M.D.
--- NOTE | 2016-09-28 22:39 | PROGRESS NOTE ---
DATE: 09/28/2016 I am seeing Mrs. Cuevas in followup. Her MRI of the brain showed an acute lacunar infarct of the right thalamus measuring 9 mm greater than expected, white matter T2 hyperintensities represented advanced microvascular ischemic changes; however, MS Lyme's disease, vasculitis could have a similar appearance. MRA of the head; mild narrowing of the supraclinoid segment of the right internal carotid artery otherwise noticed with no significant stenosis. Carotid ultrasound did not show any significant stenosis. Echocardiography showed no evidence of atrial septal defect. Left atrial size is normal, great vessels. There is aortic root sclerosis and calcification. The patient feels improved today. PHYSICAL EXAMINATION: VITAL SIGNS: 36.8, 70, 20 and 132/83. HEENT: There is normal visual salas. Very marginal flattening of the left nasolabial fold. NEUROLOGIC: There is significant dysarthria, full strength, minor left drift with only mild decrease left rapid alternating movements. Sensory examination normal. Gait unremarkable. IMPRESSION: 1. Right thalamic infarction in the setting of uncontrolled hyperlipidemia. The patient is agreeable to starting lipid lowering agents. She will continue aspirin and Plavix at present 2. Radiogaphic question of demyelinating disease. She gives no history of the same. Her exam does not show any evidence of multiple sclerosis. MRI cervical is unremarkable, I may consider lumbar puncture at some point in the future; we discussed that in some detail. She should schedule a followup appointment to see me in 1-2 weeks postdischarge. YENNY
[2016-10-06 09:08] LABS: ANTITHROMBINIII ACTIVITY** 128 % activity (80-120); B2 GLYCOPROTEIN IGA <9 SAU (<=20); B2 GLYCOPROTEIN IGG <9 SGU (<=20); B2 GLYCOPROTEIN IGM <9 SMU (<=20); LUPUS ANTICOAGULANT** TC36573X Negative (Negative); PROTEIN C ACTIVITY** TC 1777X 185 % (70-180)
[2016-10-06 10:35] LABS: FACTOR VIII ACTIV**SEND TO GMC 165 % (55 - 145)
== END 2016-09-28 18:30 | disposition home or self-care (01) | DRG 65 ==
LOC: C.EDB 09:32 → C.2T 11:50 → ENRESERV 12:00 → OBSVTOIN 15:00
PROVIDERS: ADMIT Hospitalist; ATTEND Hospitalist
DX: I63.8 Other cerebral infarction (principal); J84.9 Interstitial pulmonary disease, unspecified; E78.5 Hyperlipidemia, unspecified; Z86.73 Personal history of transient ischemic attack (TIA), and cerebral infarction without residual deficits